=== PATIENT | female | born 1995 | race Caucasian/White ===

== ENCOUNTER 2017-06-27 18:20 | Emergency (ER) | payer SELFPAY ==
[~2017-06-27] VITALS: Ht 152.4 cm; Wt 74.0 kg
[2017-06-27 18:37] VITALS: BP 129/73; PULSE 97; RESP 17; TEMP 99.7; O2SAT 100
[2017-06-27] MEDS ORDERED: IBUP-232 PO (18:51)
[2017-06-27] MEDS ORDERED: AMOX875T PO (18:51)
[2017-06-27] MEDS ORDERED: FLUT1SPR5 EACH NARE (18:51)
--- NOTE | 2017-06-27 18:57 | PD ---
HPI Chief Complaint: ENT Complaint Time Seen by Provider: 18:43 Travel History International Travel<30 days: No Contact w/Intl Traveler<30days: No Traveled to known affect area: No History of Present Illness HPI 22-year-old female presents emergency department with upper respiratory symptoms including, sore throat, right ear pain, sinus congestion, postnasal drip, and cough. Patient denies significant shortness of breath or wheezing. She is partially 1 year . She is not breast-feeding. She denies nausea, vomiting, or recent heartburn. No diarrhea. Pain in the ear is 8 out of 10. She has no drainage. She has no difficulty swallowing. No dental pain. She has no known drug allergies per [facility] Past Medical History Depression: Yes Tetanus Vaccination: < 5 Years ?: Not Past Surgical History Surgical History: No Previous Surgery Social History Alcohol Use: No Tobacco Use: No Substance Use: No Allergies-Medications (Allergen,Severity, Reaction): Coded Allergies: No Known Allergies (Unverified , 06/27/17) Reported Meds & Prescriptions Reported Meds & Active Scripts Active Ibuprofen 600 Mg Tab 600 Mg PO Q6H PRN Flonase Nasal [place] (Fluticasone Nasal [place]) 50 Mcg/Act [place] 100 Mcg EACH NARE BID Amoxicillin 875 Mg Tab 875 Mg PO BID 10 Days Review of Systems Except as stated in HPI: all other systems reviewed are Neg General / Constitutional: No: Fever Eyes: No: Visual changes HENT: Positive: Headaches, Sore Throat, Rhinitis, Rhinorrhea, Congestion, Earache, No: Vertigo, Lightheadedness, Nosebleed, Neck Stiffness, Neck Pain, Masses, Gingival Bleeding, Dental Difficulties, Ear Discharge Cardiovascular: No: Chest Pain or Discomfort Respiratory: No: Shortness of Breath Gastrointestinal: No: Abdominal Pain Genitourinary: No: Dysuria Musculoskeletal: No: Pain Skin: No Rash Neurologic: No: Weakness Psychiatric: No: Depression Endocrine: No: Polydipsia Hematologic/Lymphatic: No: Easy Bruising Physical Exam Narrative GENERAL: Patient appears in mild to moderate distress. SKIN: Warm and dry. Normal color. Normal turgor. No rash. HEAD: Atraumatic. Normocephalic. Mild to moderate sinus tenderness in both frontal maxillary sinuses more on the right than the left. EYES: Pupils equal and round. No scleral icterus. No injection or drainage. ENT: No nasal bleeding or discharge. Mucous membranes pink and moist. Right TM is dull, red, and bulging. Left TM is dull. Posterior pharynx is erythematous with cobblestoning and postnasal drip noted. No significant tonsillitis or exudate is noted. NECK: Trachea midline. Supple with mild anterior tender lymphadenopathy CARDIOVASCULAR: Regular rate and rhythm. RESPIRATORY: No accessory muscle use. Clear to auscultation. Breath sounds equal bilaterally. GASTROINTESTINAL: Abdomen soft, non-tender, nondistended. Hepatic and splenic margins not palpable. MUSCULOSKELETAL: Extremities without clubbing, cyanosis, or edema. No obvious deformities. NEUROLOGICAL: Awake and alert. No obvious cranial nerve deficits. Motor grossly within normal limits. Five out of 5 muscle strength in the arms and legs. Normal speech. PSYCHIATRIC: Appropriate mood and affect; insight and judgment normal. Data Data Last Documented VS Vital Signs Date Time Temp Pulse Resp B/P (MAP) Pulse Ox O2 Delivery O2 Flow Rate FiO2 06/27/17 18:37 99.7 97 17 129/73 (91) 100 MDM Medical Decision Making Medical Screen Exam Complete: Yes Emergency Medical Condition: Yes Differential Diagnosis Upper respiratory infection. Otitis media. Acute sinusitis. Postnasal drip. Pharyngitis. Narrative Course Patient is given amoxicillin 875 twice daily 10 days. Patient was given Flonase nasal spray 2 sprays daily. Patient is given ibuprofen 600 mg 4 times daily #40. Patient is to rest, push fluids, can use salt water gargles for sore throat, and follow-up as needed. Diagnosis Primary Impression: Acute sinusitis Qualified Codes: J01.00 - Acute maxillary sinusitis, unspecified Additional Impression: Right otitis media with effusion Referrals: Primary Care Physician Patient Instructions: Ear Infection (ED), General Instructions, Sinusitis (ED) Additional Instructions: Patient is given amoxicillin 875 twice daily 10 days. Patient was given Flonase nasal spray 2 sprays daily. Patient is given ibuprofen 600 mg 4 times daily #40. Patient is to rest, push fluids, can use salt water gargles for sore throat, and follow-up as needed. Med/Other Pt SpecificInfo: Prescription(s) given Scripts Ibuprofen (Ibuprofen) 600 Mg Tab 600 MG PO Q6H Y for Pain/Inflammation, #40 TAB 0 Refills Prov: Stew Borges MD 06/27/17 Fluticasone Nasal [place] (Flonase Nasal [place]) 50 Mcg/Act [place] 100 MCG EACH NARE BID for Allergies, #1 BOTTLE 0 Refills Prov: Stew Borges MD 06/27/17 Amoxicillin (Amoxicillin) 875 Mg Tab 875 MG PO BID for Infection for 10 Days, #20 TAB 0 Refills Prov: Stew Borges MD 06/27/17 Disposition: 01 DISCHARGE HOME Condition: Stable Aroldo Judge Jun 27, 2017 18:57
== END 2017-06-27 19:19 | disposition home or self-care (01) ==
LOC: NEPK 18:20
DX: J01.00 Acute maxillary sinusitis, unspecified (principal); H65.91 Unspecified nonsuppurative otitis media, right ear; F32.9 Major depressive disorder, single episode, unspecified
CPT/HCPCS: 99283